=== PATIENT | male | born 1990 | race Caucasian/White ===

== ENCOUNTER 2020-10-16 11:31 | Emergency (ER) | payer OTHER ==
[~2020-10-16] VITALS: Ht 167.6 cm; Wt 72.7 kg
--- NOTE | 2020-10-16 14:31 | REP ---
INDICATION: squatting large amt weights yester, felt pop in back. COMPARISON: None. TECHNIQUE: Helical scanning is acquired and 4 mm axial images re-formatted. Coronal and sagittal MPR images are included. FINDINGS: Lumbar vertebral body heights are preserved. Alignment is normal. There is no evidence of spondylolysis or spondylolisthesis. No vertebral body fracture or collapse is seen. Pedicles and posterior elements are intact. No spinous process or transverse process fracture is appreciated. Facets are normally aligned and unremarkable. No paravertebral or intraspinal mass or hematoma is seen. No evidence of lumbosacral spine disc protrusion. IMPRESSION: Normal CT study of the lumbar spine. <Electronically signed by Justyn Knight > 10/16/20 [id number]
--- NOTE | 2020-10-16 14:33 | REP ---
INDICATION: squatting large amt weights yester, felt pop in back. COMPARISON: None. TECHNIQUE: Helical scanning is acquired and 4 mm axial images re-formatted. Coronal and sagittal MPR images are generated. FINDINGS: Thoracic vertebral body heights are preserved and alignment is normal. Pedicles and posterior elements are intact. There is a small well corticated density at these tip of the spinous process at the midthoracic spine. This is not felt to be an acute fracture. No vertebral body for collapse or fracture is seen. Pedicles and posterior elements are intact. No perispinal or intraspinal fluid collection or mass is seen. The visualized lung ramos are clear. No posterior rib fracture is appreciated. IMPRESSION: Negative thoracic spine CT study. <Electronically signed by Justyn Knight > 10/16/20 0313
[2020-10-16] MEDS ORDERED: METH-1164 PO (14:45)
[2020-10-16] MEDS ORDERED: LIDO5DIS41 TD (14:45)
[2020-10-16 14:51] VITALS: BP 125/76
== END 2020-10-16 14:53 | disposition home or self-care (01) ==
LOC: M ED 11:31 → EDSEX 11:31 → M ED 14:53
DX: S39.012A Strain of muscle, fascia and tendon of lower back, initial encounter (principal); X58.XXXA Exposure to other specified factors, initial encounter; Y92.89 Other specified places as the place of occurrence of the external cause; Y99.0 Civilian activity done for income or pay